=== PATIENT | male | born 1945 | race Caucasian/White ===

== ENCOUNTER → 2016-10-17 | Outpatient (CLI) | payer MEDICARE, OTHER ==
--- NOTE | 2016-10-17 10:33 | DI ---
Indication: ITS.REASON: M25.562 PAIN IN LEFT KNEE PROCEDURE: KNEE BILAT 4 OR > MORE VIEWS: Encounter: Initial Comparison: None Findings: Left knee: No acute fracture or dislocation seen. Small joint effusion. Mild medial compartment joint space narrowing. Calcified loose bodies medial proximal tibia. Mild patellofemoral compartment joint space loss. Right knee: No acute fracture or dislocation seen. Mild medial compartment joint space narrowing with small osteophytes. Impression: Left knee: Mild medial and patellofemoral osteoarthritis. Right knee: Mild medial osteoarthritis. .
== END ==
LOC: IMA 09:39
PROVIDERS: ATTEND Nurse Practitioner Family
DX: M25.562 Pain in left knee (principal); M17.0 Bilateral primary osteoarthritis of knee